=== PATIENT | male | born 1995 | race African-American/Black ===

== ENCOUNTER 2016-07-21 12:19 | Emergency (ER) | payer OTHER ==
[~2016-07-21] VITALS: Ht 185.4 cm; Wt 111.1 kg
[2016-07-21] MEDS ORDERED: CELE-19 PO (12:28)
[2016-07-21] MEDS ORDERED: KETOROLAC 60 MG/2 ML VIAL (J1885) IM ONE (12:45)
[2016-07-21 13:48] VITALS: BP 133/79
--- NOTE | 2016-07-21 13:48 | REP ---
Thoracic spine series: Three views. History: Trauma. Back pain. Findings: Thoracic vertebral body heights are preserved. Alignment is normal. Disc spaces are maintained. Pedicles and posterior elements are intact on the frontal view. No paravertebral soft-tissue mass or swelling is seen. Impression: Negative thoracic spine radiographs. Signed by Bryce Pitts MD 07/21/2016 04:33 P
--- NOTE | 2016-07-21 13:51 | REP ---
Bilateral knee series: Four views total. History: Trauma. Findings: AP and lateral views of the left knee and AP and lateral views of the right knee are presented. These demonstrate normal bones, joints, and soft tissues. Impression: Negative bilateral knee radiographs. Two-view study obtained bilaterally. Signed by Bryce Pitts MD 07/21/2016 04:34 P
== END 2016-07-21 13:55 | disposition home or self-care (01) ==
LOC: EDBD 12:19 → M ED 13:14
DX: S80.01XA Contusion of right knee, initial encounter (principal); S80.02XA Contusion of left knee, initial encounter; M54.5 Low back pain; V49.40XA Driver injured in collision with unspecified motor vehicles in traffic accident, initial encounter; Y92.410 Unspecified street and highway as the place of occurrence of the external cause; Y93.89 Activity, other specified; Y99.9 Unspecified external cause status
CPT/HCPCS: 72072; 73560; 96372; 99282; J1885

== ENCOUNTER 2016-10-27 10:05 | Emergency (ER) | payer OTHER ==
[~2016-10-27] VITALS: Ht 185.4 cm; Wt 109.1 kg
[~2016-10-27 10:05] MED LIST: CELE1CAP4 PO
[2016-10-27] MEDS ORDERED: NAPROXEN 250 MG TAB PO ONE (11:00)
[2016-10-27] MEDS ORDERED: NAPR500T PO (13:42)
[2016-10-27 13:48] VITALS: BP 132/76
--- NOTE | 2016-10-27 13:50 | REP ---
Bilateral knee series: 10 views. History: Pain. Findings: Five views of each knee are presented. AP and lateral views of each knee were obtained and are compared from July 21, 2016. Today's views again demonstrate normal bones, joints, and soft tissues. No erosive change is seen. Joint spaces are preserved. No evidence of joint effusion seen radiographically. Impression: Negative bilateral knee radiographs. Signed by Bryce Pitts MD 10/27/2016 03:57 P
== END 2016-10-27 13:56 | disposition home or self-care (01) ==
LOC: M ED 11:10
DX: M25.561 Pain in right knee (principal); M25.562 Pain in left knee; E66.9 Obesity, unspecified